=== PATIENT | male | born 1965 | race African-American/Black ===

== ENCOUNTER 2018-01-27 20:48 | Inpatient (IN) | payer BC ==
[~2018-01-27] VITALS: Ht 180.3 cm; Wt 117.9 kg
[~2018-01-27 20:48] MED LIST: FERROUS SULFAT325 MG PO; HYZAAR 100-21 TABLET PO; VOLTAREN-XR100 MG PO
[2018-01-28 06:12] VITALS: BP 142/88
[2018-01-28 12:17] VITALS: BP 134/71
[2018-01-28 15:50] VITALS: BP 122/57
[2018-01-29 04:23] VITALS: BP 134/71
[2018-01-29 06:11] LABS: HEMATOCRIT 36.8 % (38.0-50.0); MCV 80.7 FL (86-99)
[2018-01-29 06:27] LABS: HEMOGLOBIN 12.1 G/DL (12.5-16.6)
[2018-01-29 08:10] VITALS: BP 125/64
[2018-01-29 11:57] VITALS: BP 125/67
[2018-01-29 15:36] VITALS: BP 135/80
[2018-01-29 20:28] VITALS: BP 136/61
[2018-01-30 00:10] VITALS: BP 133/66
[2018-01-30 04:15] VITALS: BP 141/73
[2018-01-30 08:00] VITALS: BP 132/72
[2018-01-30] MEDS ORDERED: BENADRYL25 MG PO (10:40)
[2018-01-30] MEDS ORDERED: SENNA PLUS TAB1 EACH PO (10:46)
[2018-01-30] MEDS ORDERED: Tylenol Extra Streng PO (10:46)
[2018-01-30] MEDS ORDERED: Salonpas 4% Patch TD (10:47)
[2018-01-30] MEDS ORDERED: OXYCONTIN10 MG PO (10:47)
[2018-01-30] MEDS ORDERED: OXYCODONE HCL5 MG PO (10:47)
[2018-01-30] MEDS ORDERED: ELIQUIS2.5 MG PO (10:47)
[2018-01-30 12:27] VITALS: BP 145/64
[2018-01-30 16:03] VITALS: BP 128/68
[2018-01-30 20:02] VITALS: BP 118/59
[2018-01-31 00:25] VITALS: BP 132/70
[2018-01-31 04:19] VITALS: BP 134/67
[2018-01-31 08:12] VITALS: BP 135/70
[2018-01-31 12:19] VITALS: BP 140/66
== END 2018-01-31 13:20 | disposition home health service (06) | DRG 470 ==
LOC: ENRESERV 20:48 → 3WEST 01-28 05:48 → 2SOUTH 01-28 05:48 → 3WEST 01-28 11:56 → 2SOUTH 01-28 14:54 → 3WEST 01-31 13:20
PROVIDERS: Orthopaedic Surgery
PROC: 0SRB0JZ Replacement of Left Hip Joint with Synthetic Substitute, Open Approach (ICD-10-PCS; principal; 2018-01-28)
DX: M16.12 Unilateral primary osteoarthritis, left hip (principal); R50.9 Fever, unspecified; I10 Essential (primary) hypertension; K58.9 Irritable bowel syndrome, unspecified; Z86.718 Personal history of other venous thrombosis and embolism
CPT/HCPCS: 85014; 85018; C1713; J0131; J0690; J1170; J1885; J2250; J2405; J3010; J7050; J7120; S0020